=== PATIENT | female | born 1990 | race Caucasian/White ===

== ENCOUNTER 2020-12-27 10:00 | Inpatient (IN) ==
[2020-12-27] MEDS ORDERED: Naloxone 0.4 MG/ML INJ IVP PRN (10:22)
[2020-12-27] MEDS ORDERED: Metoclopramide 10 MG/2 ML VIAL IVP PRN (10:22)
[2020-12-27] MEDS ORDERED: Famotidine 20 MG/2 ML VIAL IVP PRN (10:22)
[2020-12-27] MEDS ORDERED: Ondansetron 4 MG/2 ML VIAL IVP PRN (10:22)
[2020-12-27] MEDS ORDERED: Ringers Solution, Lactated 1,000 ML IVC SCH (10:30)
[2020-12-27] MEDS ORDERED: Oxytocin 20 units/ LR 1000 mL 20 UNIT/1,000 ML BAG IVC SCH ×2 (10:30→17:58)
[2020-12-27 11:26] LABS: Hematocrit 34.9 % (35.3-44.9); Hemoglobin 11.4 g/dL (11.5-15.4); Lymphocytes # 1.8 K/mcL (0.6-4.6); Mean Corpuscular HGB Conc 32.7 g/dL (31.6-35.5); Mean Corpuscular Hemoglobin 30.6 pg (28.0-33.3); Mean Corpuscular Volume 93.6 fL (83.0-100.0); Mean Platelet Volume 12.9 fL (9.4-12.4); Platelet Count 223 K/mcL (140-400); Red Blood Count 3.73 M/mcL (3.82-4.97); Red Cell Distribution Width 13.8 % (11.5-14.5); White Blood Count 11.5 K/mcL (4.3-11.1)
[2020-12-27 12:28] LABS: Monocytes # 1.4 K/mcL (0.0-1.3); Neutrophils # 8.3 K/mcL (1.6-8.9); Platelet Estimate Normal (Normal)
[2020-12-27 13:05] LABS: Amphetamine Screen,Urine Negative ng/mL (Cutoff=1000); Barbiturate Screen,Urine Negative ng/mL (Cutoff=200); Benzodiazepines Screen,Urine Negative ng/mL (Cutoff=200); Cannabinoid Screen,Urine Negative ng/mL (Cutoff = 50); Cocaine Screen,Urine Negative ng/mL (Cutoff= 300); Opiate Screen,Urine Negative ng/mL (Cutoff=300); Phencyclidine Screen,Urine Negative ng/mL (Cutoff=25)
[2020-12-27] MEDS ORDERED: EPHEDrine 50 MG/ML VIAL IVP PRN (13:21)
[2020-12-27] MEDS ORDERED: *HR* FentaNYL (PF) 100 MCG/2 ML VIAL EP ONE (13:21)
[2020-12-27] MEDS ORDERED: Ropivacaine/PF 0.2% 20 ML VIAL EP ONE (13:21)
[2020-12-27] MEDS ORDERED: *HR* FentaNYL (PF) 250 MCG/5 ML VIAL ONE (13:29)
[2020-12-27] MEDS ORDERED: Epidural Premix (fent/bupiv) 110 ML EP SCH (13:30)
[2020-12-27] MEDS ORDERED: *HR* FentaNYL (PF) 100 MCG/2 ML VIAL ONE ×2 (15:40→15:49)
[2020-12-27] MEDS ORDERED: Measles/Mumps/Rubella Vacc 0.5 ML VIAL SQ PRN (17:58)
[2020-12-27] MEDS ORDERED: Benzocaine/Menthol 56 GM AEROSOL SPRAY TP PRN (17:58)
[2020-12-27] MEDS ORDERED: Rho Immune Globulin 1,500 UNIT SYRINGE IM PRN (17:58)
[2020-12-27] MEDS ORDERED: Oxytocin 20 units/ LR 1000 mL 20 UNIT/1,000 ML BAG IVC ONE (17:58)
[2020-12-27] MEDS ORDERED: Sennosides 8.6 MG TABLET PO PRN (17:58)
[2020-12-27] MEDS ORDERED: Lanolin 7 G OINT...G. TP PRN (17:58)
[2020-12-27] MEDS: Ibuprofen 600 MG TABLET PO SCH (20:03)
[2020-12-28] MEDS: Acetaminophen 325 MG TABLET PO SCH ×2 (02:22→13:49)
[2020-12-28 02:38] VITALS: BP 128/88
[2020-12-28 02:45] LABS: Basophils % 0.2 %; Eosinophils # 0.1 K/mcL (0.0-0.6); Eosinophils % 0.6 %; Hematocrit 32.3 % (35.3-44.9); Hemoglobin 10.5 g/dL (11.5-15.4); Immature Granulocytes % 0.5 % (0-4); Lymphocytes # 2.3 K/mcL (0.6-4.6); Lymphocytes % 13.6 %; Mean Corpuscular HGB Conc 32.5 g/dL (31.6-35.5); Mean Corpuscular Hemoglobin 30.4 pg (28.0-33.3); Mean Corpuscular Volume 93.6 fL (83.0-100.0); Mean Platelet Volume 12.6 fL (9.4-12.4); Monocytes % 5.9 %; Neutrophils # 13.5 K/mcL (1.6-8.9); Platelet Count 215 K/mcL (140-400); Red Blood Count 3.45 M/mcL (3.82-4.97); Segmented Neutrophils % 79.2 %
[2020-12-28 02:46] LABS: White Blood Count 17.1 K/mcL (4.3-11.1)
[2020-12-28] MEDS: Ibuprofen 600 MG TABLET PO SCH (08:28)
[2020-12-28] MEDS ORDERED: Prenatal Vit/FA 1 EACH TABLET PO SCH (09:00)
== END 2020-12-28 17:00 | disposition home or self-care (01) | DRG 807 ==
LOC: 1NENULAB 10:04 → 1NENUOBS 18:02
PROVIDERS: ADMIT Student in an Organized Health Care Education/Training Program; ATTEND Student in an Organized Health Care Education/Training Program